=== PATIENT | male | born 1990 | race Caucasian/White ===

== ENCOUNTER 2023-12-07 12:03 | Emergency (ER) | payer BC, SELFPAY ==
[2023-12-07 12:08] VITALS: BP 108/74
--- NOTE | 2023-12-07 12:32 | ED.GENMED ---
History of Present Illness
General
Chief Complaint: Abdominal Symptoms
Time Seen by Provider: 12/07/23 12:14
Travel History
Have you had any contact with someone who has COVID-19?: No
Do you have any symptoms of coronavirus? Fever > 100 degrees, chills, cough, shortness of breath, sore throat, loss of taste or smell, muscle aches, or headache?: No
History of Present Illness
History of Present Illness:
33-year-old male with history of cerebral palsy, hydrocephalus status post HAND DRILLER shunt, prior bowel obstructions presents to the emergency department for evaluation of diarrhea over the past 2 days. Patient denies any pain. The mother is concerned
for possible recurrent bowel obstruction. No reported fevers or vomiting at this time
Past History
Past History
ED Past Medical History: Seizures and Other (right hemiplegia, mild cognitive disability); Negative Asthma, HTN, Hypercholesterolemia or NIDDM
ED Past Surgical History: Bowel resection (after perforation from ventriculoperoneal shunt), Brain (ventriculoperitoneal shunt revised 4 times, left hemispherectomy) and Orthopedic (Right wrist fusion)
Social History
Tobacco: Non-smoker
Alcohol: None
Drug: None
Personal: Single
Living: with family
Employment: Disabled
Family History
Family History: Other (reviewed and noncontributory)
Review of Systems
Review of Systems
Allergies reviewed?: Yes
All Other Systems: ROS reviewed and negative except as documented in HPI and ROS
Phy Exam
Physical Exam
Physical Exam:
GEN: Well appearing, NAD, WDWN
Eyes: PERRLA, EOMs intact, no scleral icterus
HENT: NCAT, oral mucosa moist
Lungs: CTAB, no wheezes, rales, rhonchi, normal chest wall excursion
Cardiac: RRR, no M/R/G, no peripheral edema. Radial pulses 2+ bilat
Abdomen: S, NT, ND, NABS, no masses or hepatosplenomegaly
Neuro: AO x 3, no focal deficits to BUE/BLE, normal sensation throughout
MSK: No gross deformity or ecchymosis. No edema. No digital clubbing
Skin: No rashes, petechiae. Normal color, no pallor or jaundice.
Psych: Calm, cooperative, proper hygiene
Course
Orders/Labs/Results
Orders:
Orders
12/07/23 12:32
CT Abd/pel W Iv And Oral Contr Urgent
Comment:
Reason For Exam: abd pain/diarrhea, hx of SBO
Iohexol [Omnipaque] See Protocol PO NOW STA
12/07/23 13:03
Complete Blood Count/With Diff Urgent
Comprehensive Metabolic Panel Urgent
Lactic Acid Urgent
Abnormal Lab Results
12/07/23
13:03
RBC 4.59 L 10^6/uL
(4.70-6.10)
Absolute Eos (auto) 0.8 H 10^3/uL
(0-0.7)
Lymphocytes % 15.2 L %
(20.5-51.1)
Eosinophils % 10.8 H %
(0-6)
12/07/23 13:03
12/07/23 13:03
Vital Signs
Initial and Last Documented VS:
Initial Vital Signs
Temp Pulse Resp BP Pulse Ox
98.5 F 68 18 108/74 97
12/07/23 12:08 12/07/23 12:08 12/07/23 12:08 12/07/23 12:08 12/07/23 12:08
Last Documented Vital Signs
Temp Pulse Resp BP Pulse Ox
98.5 F 74 18 111/78 97
12/07/23 12:08 12/07/23 17:22 12/07/23 12:08 12/07/23 17:07 12/07/23 16:46
MDM/Problems Addressed
MDM/Problems Addressed:
CT reassuring, no evidence for bowel obstruction, likely self-limited diarrhea
*Critical Care Note
Total Time (30-74mins, 75-104mins- exclusive of procedures): Not Applicable
ED Attending Note
-
Portions of this chart may have been created with voice recognition software.� Occasional wrong word or��sound alike� substitutions may have occurred due to the inherent limitations of voice recognition software.
Discharge Plan
Departure
Patient Disposition: Home (Routine Discharge)
Date of Disposition: 12/07/23
Time of Disposition: 16:50
Patient with high blood pressure during this ER visit?: No
Discharge Problem:
Diarrhea
Instructions: Acute Diarrhea
Prescriptions:
No Action
lamotrigine [Lamictal] 200 MG tablet
200 mg PO DAILY
Rx Instructions:
AM
lamotrigine [Lamictal] 200 MG tablet
100 mg PO DAILY@1600
levetiracetam 750 mg Tablet
750 mg PO BID
cholecalciferol (vitamin D3) [Vitamin D3] 25 mcg (1,000 unit) Tablet
25 mcg PO DAILY
famotidine [Pepcid] 20 mg tablet
20 mg PO BID PRN (Reason: if you take Ibuprofen) Qty: 10 0RF
ibuprofen 400 mg tablet
400 mg PO Q6H PRN (Reason: moderate pain) Qty: 20 0RF
Rx Instructions:
take with food only
acetaminophen [Tylenol] 325 mg capsule
650 mg PO Q6H PRN (Reason: mild pain) Qty: 20 0RF
amoxicillin-pot clavulanate 875-125 mg tablet
1 tab PO BID Qty: 9 0RF
Referrals:
Stevie Mercado MD [Family Provider] -
Interventions
Interventions:
*Risk Screen - Suicide Last Done: 12/07/23 12:50
*General Assessment Last Done: 12/07/23 12:08
*Neglect/Abuse Screening Last Done: 12/07/23 12:50
ED- Fall Risk Assessment Last Done: 12/07/23 12:50
*ED COVID-19 Vaccine History Last Done: 12/07/23 12:08
*Nursing Disposition Last Done: 12/07/23 17:26
OW-Xjzyrl-Hyhuhuelko Assessment Last Done: 12/07/23 12:50
Discharge Date and Time
Discharge Date/Time: 12/07/23 17:28
Print Language: SLOVAK
[2023-12-07] MEDS: OMNIPAQUE 50 ML PO (12:49)
[2023-12-07 12:50] VITALS: BMI 20.6
[2023-12-07 12:52] VITALS: BP 97/63
[2023-12-07 13:00] VITALS: BP 113/72
[2023-12-07 13:11] LABS: % Basophils 0.5 % (0-2); % Eosinophils 10.8 % (0-6); % Immature Granulocytes 0.4 % (0-0.5); % Lymphocytes 15.2 % (20.5-51.1); % Monocytes 7.1 % (1.7-9.3); Absolute Eosinophils 0.8 10^3/uL (0-0.7); Absolute Lymphocytes 1.2 10^3/uL (1.2-3.4); Absolute Monocytes 0.6 10^3/uL (0.1-0.6); Absolute Neutrophils 5.1 10^3/uL (1.4-6.5); Hematocrit 40.4 % (39.0-52.0); Hemoglobin 14.1 g/dL (13.0-18.0); Mean Corp Hgb Conc. 34.9 g/dL (33.0-37.0); Mean Corpuscular Hgb 30.7 pg (27.0-31.0); Mean Platelet Volume 8.9 fL (7.4-10.4); Nucleated Red Blood Cells % 0 % (-); Platelet Count 231 10^3/uL (130-400); Red Blood Cell Count 4.59 10^6/uL (4.70-6.10); Red Cell Dist. Width 12.2 % (11.5-14.5); White Blood Cell Count 7.7 10^3/uL (4.8-10.8)
[2023-12-07 13:27] LABS: Lactic Acid 0.8 mmol/L (0.7-2.0)
[2023-12-07 13:28] LABS: ALT (SGPT) 19 U/L (0-50); AST (SGOT) 20 U/L (17-59); Albumin 4.5 g/dl (3.5-5.0); Alkaline Phosphatase 84 U/L (38-126); Blood Urea Nitrogen 12 mg/dl (9-20); Calcium 9.5 mg/dl (8.4-10.2); Carbon Dioxide 28 mmol/L (22-30); Chloride 105 mmol/L (98-107); Estimated Creatinine Clearance 100 ml/min; Glucose 98 mg/dl (70-99); Potassium 4.3 mmol/L (3.5-5.1); Sodium 137 mmol/L (135-145); Total Bilirubin 0.6 mg/dl (0.2-1.3); Total Protein 7.1 g/dl (6.3-8.2); eGFR > 60.00
[2023-12-07 14:00] VITALS: BP 113/70
[2023-12-07 15:00] VITALS: BP 109/73
[2023-12-07 17:07] VITALS: BP 111/78
== END 2023-12-07 17:28 | disposition home or self-care (01) ==
LOC: EMR 12:03
PROVIDERS: Physician Assistant; EMERGENCY PHYSICIAN Emergency Medicine; FAMILY PHYSICIAN Family Medicine
DX: R19.7 Diarrhea, unspecified (principal); G80.9 Cerebral palsy, unspecified; G91.9 Hydrocephalus, unspecified; Z98.2 Presence of cerebrospinal fluid drainage device
CPT/HCPCS: 99284; 74177; 80053; 83605; 85025; Q9967

== ENCOUNTER → 2023-12-27 11:24 | Outpatient (REF) | payer BC, SELFPAY ==
[2023-12-27 12:13] LABS: % Basophils 0.7 % (0-2); % Eosinophils 14.5 % (0-6); % Immature Granulocytes 0.3 % (0-0.5); % Lymphocytes 18.1 % (20.5-51.1); % Monocytes 9.3 % (1.7-9.3); % Neutrophils 57.1 % (42.2-75.2); Absolute Eosinophils 0.9 10^3/uL (0-0.7); Absolute Lymphocytes 1.1 10^3/uL (1.2-3.4); Absolute Monocytes 0.6 10^3/uL (0.1-0.6); Absolute Neutrophils 3.4 10^3/uL (1.4-6.5); Hematocrit 42.6 % (39.0-52.0); Hemoglobin 14.4 g/dL (13.0-18.0); Mean Corp Hgb Conc. 33.8 g/dL (33.0-37.0); Mean Corpuscular Hgb 30.6 pg (27.0-31.0); Mean Corpuscular Volume 90.6 fL (80.0-94.0); Mean Platelet Volume 9.2 fL (7.4-10.4); Nucleated Red Blood Cells % 0 % (-); Platelet Count 234 10^3/uL (130-400)
[2023-12-27 13:05] LABS: HDL Cholesterol 57 mg/dl; LDL Cholesterol, Calculated 99 mg/dl; Total Cholesterol 164 mg/dl (50-199); Triglyceride 42 mg/dl (10-149); Very Low Density Lipoprotein 8 mg/dl (0-30)
[2023-12-29 02:04] LABS: Keppra (Levetiracetam) 11 ug/mL (10-40); Lamotrigine (Lamictal) 7.9 ug/mL (3.0-15.0)
[2023-12-30 03:33] LABS: Hepatitis B Surface Antigen Negative (Negative)
[2023-12-30 03:50] LABS: Hepatitis B Surface Antibody Negative
== END ==
LOC: REG 11:24
PROVIDERS: ATTENDING PHYSICIAN Psychiatry & Neurology Neurology; FAMILY PHYSICIAN Student in an Organized Health Care Education/Training Program; REFERRING PHYSICIAN Family Medicine
DX: G40.219 Localization-related (focal) (partial) symptomatic epilepsy and epileptic syndromes with complex partial seizures, intractable, without status epilepticus (principal); E78.2 Mixed hyperlipidemia; D72.10 Eosinophilia, unspecified; Z11.1 Encounter for screening for respiratory tuberculosis; Z11.59 Encounter for screening for other viral diseases
CPT/HCPCS: 36415; 80061; 80175; 80177; 85025; 86480; 86706; 87340

== ENCOUNTER → 2024-10-30 10:13 | Outpatient (REF) | payer BC, SELFPAY ==
[2024-10-30 12:24] LABS: % Basophils 0.6 % (0-2); % Eosinophils 13.8 % (0-6); % Immature Granulocytes 0.7 % (0-0.5); % Lymphocytes 15.9 % (20.5-51.1); % Monocytes 6.1 % (1.7-9.3); % Neutrophils 62.9 % (42.2-75.2); Absolute Immature Granulocytes 0.1 10^3/uL (0-0.05); Absolute Lymphocytes 1.1 10^3/uL (1.2-3.4); Absolute Monocytes 0.4 10^3/uL (0.1-0.6); Absolute Neutrophils 4.5 10^3/uL (1.4-6.5); Hematocrit 44.1 % (39.0-52.0); Hemoglobin 14.9 g/dL (13.0-18.0); Mean Corp Hgb Conc. 33.8 g/dL (33.0-37.0); Mean Corpuscular Hgb 30.6 pg (27.0-31.0); Mean Corpuscular Volume 90.6 fL (80.0-94.0); Mean Platelet Volume 9.9 fL (7.4-10.4); Nucleated Red Blood Cells % 0 % (-); Platelet Count 245 10^3/uL (130-400); Red Blood Cell Count 4.87 10^6/uL (4.70-6.10); Red Cell Dist. Width 11.9 % (11.5-14.5); White Blood Cell Count 7.2 10^3/uL (4.8-10.8)
[2024-10-30 12:50] LABS: ALT (SGPT) 16 U/L (0-50); AST (SGOT) 19 U/L (17-59); Albumin 4.9 g/dl (3.5-5.0); Alkaline Phosphatase 78 U/L (38-126); Blood Urea Nitrogen 16 mg/dl (9-20); Calcium 9.6 mg/dl (8.4-10.2); Carbon Dioxide 28 mmol/L (22-30); Chloride 104 mmol/L (98-107); Glucose 83 mg/dl (70-99); HDL Cholesterol 60 mg/dl; Iron 177 ug/dl (49-181); LDL Cholesterol, Calculated 108 mg/dl; Potassium 4.7 mmol/L (3.5-5.1); Sodium 142 mmol/L (135-145); Total Bilirubin 0.9 mg/dl (0.2-1.3); Total Cholesterol 178 mg/dl (50-199); Total Protein 7.3 g/dl (6.3-8.2); Triglyceride 52 mg/dl (10-149); Very Low Density Lipoprotein 10 mg/dl (0-30); eGFR > 60.00
[2024-10-30 12:58] LABS: Percent Saturation 59 % (20-50); Total Iron Binding Capacity 298 ug/dl (261-462)
[2024-10-30 13:21] LABS: TSH Reflex To Free T4 0.64 uIU/ml (0.47-4.68)
[2024-10-30 17:31] LABS: Hepatitis C Antibody Negative (Negative)
[2024-11-01 13:30] LABS: Lamotrigine (Lamictal) 7.2 ug/mL (3.0-15.0)
[2024-11-01 13:34] LABS: Keppra (Levetiracetam) 12 ug/mL (10-40)
[2024-11-01 13:37] LABS: % Free Testosterone 1.9 % (1.6-2.9); Free Testosterone 138 pg/mL (47-244); Sex Hormone Binding Globulin 36 nmol/L (17-56); Total Testosterone 720 ng/dL (300-1080)
== END ==
LOC: REG 10:13
PROVIDERS: ATTENDING PHYSICIAN Psychiatry & Neurology Neurology; FAMILY PHYSICIAN Family Medicine; REFERRING PHYSICIAN Student in an Organized Health Care Education/Training Program
DX: Z00.00 Encounter for general adult medical examination without abnormal findings (principal); G40.219 Localization-related (focal) (partial) symptomatic epilepsy and epileptic syndromes with complex partial seizures, intractable, without status epilepticus
CPT/HCPCS: 36415; 80053; 80061; 80175; 80177; 83540; 83550; 84270; 84402; 84403; 84443; 85025; 86803

== ENCOUNTER 2025-06-01 13:19 | Outpatient (RCR) | payer BC, SELFPAY | END 2025-06-01 23:59 | disposition home or self-care (01) | LOC: RPT 13:19 | PROVIDERS: ATTENDING PHYSICIAN Family Medicine | DX: G80.8 Other cerebral palsy (principal); G81.03 Flaccid hemiplegia affecting right nondominant side; Z73.6 Limitation of activities due to disability; R26.2 Difficulty in walking, not elsewhere classified | CPT/HCPCS: 97110; 97112; 97140; 97162; 97530 ==

== ENCOUNTER 2025-06-29 08:35 | Outpatient (RCR) | payer BC, SELFPAY | END 2025-06-29 23:59 | disposition home or self-care (01) | LOC: RPT 08:35 | PROVIDERS: ATTENDING PHYSICIAN Family Medicine | DX: G80.8 Other cerebral palsy (principal); G81.03 Flaccid hemiplegia affecting right nondominant side; Z73.6 Limitation of activities due to disability; R26.2 Difficulty in walking, not elsewhere classified | CPT/HCPCS: 97110; 97112; 97140; 97530 ==

== ENCOUNTER 2025-07-22 07:49 | Outpatient (RCR) | payer BC, SELFPAY | END 2025-07-22 23:59 | disposition home or self-care (01) | LOC: RPT 07:49 | PROVIDERS: ATTENDING PHYSICIAN Family Medicine | DX: G80.8 Other cerebral palsy (principal); G81.03 Flaccid hemiplegia affecting right nondominant side; Z73.6 Limitation of activities due to disability; R26.2 Difficulty in walking, not elsewhere classified | CPT/HCPCS: 97110; 97112; 97140; 97530 ==